=== PATIENT | female | born 1955 | race Caucasian/White ===

== ENCOUNTER 2024-06-09 20:33 | Inpatient (IN) | payer MEDICARE ==
[~2024-06-09] VITALS: Ht 154.9 cm; Wt 104.8 kg
[2024-06-09 21:41] LABS: BASOPHILS # (AUTO) 0.1 K/UL (0.0-0.2); BASOPHILS % (AUTO) 1.3 % (0.0-2.0); EOSINOPHILS % (AUTO) 0.3 % (0.0-7.0); HEMATOCRIT 40.9 % (31.2-41.9); HEMOGLOBIN 13.3 g/dL (10.9-14.3); LYMPHOCYTES # (AUTO) 1.6 K/uL (0.8-4.8); LYMPHOCYTES % (AUTO) 20.2 % (20.5-51.5); MEAN CORPUSCULAR HGB CONC 33 g/dL (32.3-35.6); MEAN CORPUSCULAR VOLUME 92.3 fL (75.5-95.3); MONOCYTES # (AUTO) 0.4 K/uL (0.1-1.30); MONOCYTES % (AUTO) 5.7 % (0.0-11.0); NEUTROPHILS # (AUTO) 5.6 K/uL (1.8-8.9); NEUTROPHILS % (AUTO) 72.5 % (38.5-71.5); PLATELET COUNT (AUTO) 282 K/uL (179-408); RED BLOOD CELL COUNT(AUTO) 4.43 MIL/uL (3.63-4.92); RED CELL DISTRIBUTION WIDTH 16.2 % (12.3-17.7); WHITE BLOOD COUNT (AUTO) 7.7 K/uL (3.8-11.8)
[2024-06-09 21:49] LABS: DIFFERENTIAL COMMENT 1
[2024-06-09 21:59] LABS: CALCIUM 8.9 mg/dL (8.5-10.1); CARBON DIOXIDE 29 mmol/L (21-32); CHLORIDE 107 mmol/L (98-107); CREATININE 0.9 mg/dL (0.6-1.3); GLUCOSE 100 mg/dL (74-106); POTASSIUM 4.3 mmol/L (3.5-5.1); SODIUM SERUM 143 mmol/L (136-145); UREA NITROGEN, BLOOD 10 mg/dL (7-18)
[2024-06-09 22:02] LABS: ETHANOL < 3 MG/DL (0-10)
[2024-06-09 22:04] LABS: ALANINE AMINOTRANSFERASE 13 U/L (14-59); ALBUMIN 3.5 g/dL (3.4-5.0); ALKALINE PHOSPHATASE 114 U/L (50-136); ASPARTATE AMINOTRANSFERASE 10 U/L (15-37); BILIRUBIN,DIRECT 0.2 mg/dL (0.0-0.2); BILIRUBIN,TOTAL 0.6 mg/dL (0.2-1.0); TOTAL PROTEIN, SERUM 6.9 g/dL (6.4-8.2)
[2024-06-09 22:06] LABS: ACETAMINOPHEN < 10.0 ug/mL (10-30)
[2024-06-09 23:59] LABS: *BILIRUBIN,URIN NEGATIVE (NEGATIVE); *BLOOD, URINE NEGATIVE (NEGATIVE); *CLARITY,URINE CLEAR (CLEAR); *COLOR,URINE YELLOW (YELLOW); *KETONES,URINE NEGATIVE (NEGATIVE); *PROTEIN,URINE NEGATIVE (NEGATIVE); LEUKOCYTE ESTERASE ,URINE NEGATIVE (NEGATIVE); NITRITE, URINE NEGATIVE (NEGATIVE); UGLUCOSE NEGATIVE (NEGATIVE)
[2024-06-10 00:11] LABS: *AMPHETAMINE, URINE NEGATIVE (NEGATIVE); *BARBITURATE, URINE NEGATIVE (NEGATIVE); *BENZODIAZEPINE, URINE NEGATIVE (NEGATIVE); *CANNABINOID, URINE NEGATIVE (NEGATIVE); *COCCAINE, URINE NEGATIVE (NEGATIVE); *OPIATE, URINE NEGATIVE (NEGATIVE); *PHENCYCLIDINE SCREEN,URINE NEGATIVE (NEGATIVE); FENTANYL, URINE NEGATIVE (NEGATIVE)
[2024-06-10] MEDS ORDERED: ACETAMINOPHEN 325 MG TABLET ONE (00:47)
[2024-06-10] MEDS: ACETAMINOPHEN 325 MG TABLET PO ONE (00:49)
[2024-06-10] MEDS ORDERED: MAGNESIUM HYDROXIDE 30 ML LIQUID UDC PO PRN (01:00)
[2024-06-10] MEDS ORDERED: CLONAZEPAM 0.5 MG TABLET PO PRN (01:00)
[2024-06-10] MEDS ORDERED: MAG HYDROX/AL HYDROX/SIMETH 30 ML LIQUID UDC PO PRN (01:00)
[2024-06-10 08:00] VITALS: BP 123/58; TEMP 98.3; O2SAT 97
[2024-06-10] MEDS: NICOTINE 21 MG/24HR PATCH TD SCH (08:25)
[2024-06-10] MEDS: ACETAMINOPHEN 325 MG TABLET PO PRN (09:44)
[2024-06-10] MEDS: CLONAZEPAM 0.5 MG TABLET PO PRN (09:44)
[2024-06-10 16:32] VITALS: BP 115/52; TEMP 98.1; O2SAT 97
[2024-06-10 20:37] VITALS: BP 116/48; TEMP 98; O2SAT 92
[2024-06-10] MEDS: TEMAZEPAM 7.5 MG CAPSULE PO PRN (21:31)
[2024-06-11 07:50] LABS: BASOPHILS # (AUTO) 0.1 K/UL (0.0-0.2); BASOPHILS % (AUTO) 1.5 % (0.0-2.0); EOSINOPHILS # (AUTO) 0.1 K/uL (0.0-0.7); EOSINOPHILS % (AUTO) 2.3 % (0.0-7.0); HEMATOCRIT 38.9 % (31.2-41.9); HEMOGLOBIN 12.8 g/dL (10.9-14.3); LYMPHOCYTES # (AUTO) 1.7 K/uL (0.8-4.8); LYMPHOCYTES % (AUTO) 32.7 % (20.5-51.5); MEAN CORPUSCULAR HEMOGLOBIN 30.2 uug (24.7-32.8); MEAN CORPUSCULAR HGB CONC 33 g/dL (32.3-35.6); MEAN CORPUSCULAR VOLUME 91.6 fL (75.5-95.3); MONOCYTES # (AUTO) 0.4 K/uL (0.1-1.30); MONOCYTES % (AUTO) 7.5 % (0.0-11.0); NEUTROPHILS # (AUTO) 2.9 K/uL (1.8-8.9); PLATELET COUNT (AUTO) 263 K/uL (179-408); RED BLOOD CELL COUNT(AUTO) 4.24 MIL/uL (3.63-4.92); RED CELL DISTRIBUTION WIDTH 16.5 % (12.3-17.7); WHITE BLOOD COUNT (AUTO) 5.2 K/uL (3.8-11.8)
[2024-06-11 08:00] LABS: DIFFERENTIAL COMMENT 1
[2024-06-11] MEDS: ESCITALOPRAM OXALATE 10 MG TABLET PO SCH (08:16)
[2024-06-11 08:19] LABS: ALBUMIN 3.1 g/dL (3.4-5.0); BILIRUBIN,TOTAL 0.5 mg/dL (0.2-1.0); CALCIUM 8.4 mg/dL (8.5-10.1); CREATININE 0.8 mg/dL (0.6-1.3); MAGNESIUM 2.2 mg/dL (1.8-2.4); PHOSPHOROUS 3.2 mg/dL (2.5-4.9); POTASSIUM 4.6 mmol/L (3.5-5.1); TOTAL PROTEIN, SERUM 6.1 g/dL (6.4-8.2)
[2024-06-11 08:22] LABS: THYROID STIMULATING HORMONE 1.515 mIU/mL (0.358-3.740)
[2024-06-11 08:26] VITALS: BP 157/76; TEMP 97.9; O2SAT 98
[2024-06-11 16:20] VITALS: BP 146/78; TEMP 98; O2SAT 97
[2024-06-11 20:12] VITALS: BP 153/79; TEMP 98.1; O2SAT 94
[2024-06-12 08:06] VITALS: BP 98/52; TEMP 98.7; O2SAT 97
[2024-06-12 16:34] VITALS: BP 113/68; TEMP 98.3; O2SAT 97
[2024-06-12 21:23] VITALS: BP 145/94; TEMP 98; O2SAT 94
[2024-06-13] MEDS: CLOTRIMAZOLE 1% CREAM 30 GM TUBE TOP SCH (08:23)
[2024-06-13] MEDS: REMEDY ESSENTIAL ZINC PASTE 113 GM TOP SCH (08:23)
[2024-06-13 08:46] VITALS: BP 144/78; TEMP 98; O2SAT 91
[2024-06-13] MEDS: CYANOCOBALAMIN 1,000 MCG TABLET PO SCH (12:29)
[2024-06-13] MEDS: IBUPROFEN 400 MG TABLET PO PRN (12:29)
[2024-06-13 15:30] VITALS: BP 158/74; TEMP 98; O2SAT 93
[2024-06-14 08:02] VITALS: BP 137/74; TEMP 98; O2SAT 96
[2024-06-14 15:31] VITALS: BP 138/77; TEMP 98; O2SAT 93
[2024-06-14 20:04] VITALS: BP 109/75; TEMP 98.2; O2SAT 94
[2024-06-15 08:03] VITALS: BP 127/72; TEMP 98; O2SAT 90
[2024-06-15 15:38] VITALS: BP 114/62; TEMP 98; O2SAT 96
[2024-06-15 20:18] VITALS: BP 128/82; TEMP 98.1; O2SAT 92
[2024-06-16 07:56] VITALS: BP 125/44; TEMP 98.2; O2SAT 92
[2024-06-16 16:07] VITALS: BP 129/65; TEMP 98; O2SAT 96
[2024-06-16 20:00] VITALS: BP 122/77; TEMP 98.1; O2SAT 95
[2024-06-17 08:11] VITALS: BP 111/56; TEMP 98; O2SAT 98
[2024-06-17 16:12] VITALS: BP 147/70; TEMP 98; O2SAT 97
[2024-06-17 20:00] VITALS: BP 141/71; TEMP 98; O2SAT 93
[2024-06-18 08:00] VITALS: BP 122/70; TEMP 98.5; O2SAT 97
[2024-06-18 16:59] VITALS: BP 149/72; TEMP 98.1; O2SAT 97
[2024-06-18 20:23] VITALS: BP 121/65; TEMP 98; O2SAT 92
[2024-06-19 08:04] VITALS: BP 117/55; TEMP 98.1; O2SAT 97
[2024-06-19 16:31] VITALS: BP 125/65; TEMP 98; O2SAT 97
[2024-06-19 20:00] VITALS: BP 140/67; TEMP 97.9; O2SAT 93
[2024-06-20 08:06] VITALS: BP 124/62; TEMP 98; O2SAT 94
[2024-06-20] MEDS: ESCITALOPRAM OXALATE 10 MG TABLET PO ONE (09:11)
[2024-06-20 15:30] VITALS: BP 115/61; TEMP 98; O2SAT 94
[2024-06-20 20:00] VITALS: BP 137/80; TEMP 98; O2SAT 95
[2024-06-21 07:30] VITALS: BP 126/51; TEMP 98; O2SAT 98
[2024-06-21] MEDS: CYANOCOBALAMIN 1000 MCG/ML VIAL IM SCH (08:56)
[2024-06-21] MEDS: ESCITALOPRAM OXALATE 10 MG TABLET PO SCH (08:57)
== END 2024-06-21 15:04 | DRG 881 ==
LOC: ER 20:46 → GPS 22:21
PROVIDERS: ADMIT Psychiatry & Neurology Psychiatry; ATTEND Nurse Practitioner Acute Care
PROC: 0HBRXZZ Excision of Toe Nail, External Approach (ICD-10-PCS; principal; 2024-06-13)
DX: F32.A Depression, unspecified (principal); Z68.42 Body mass index [BMI] 45.0-49.9, adult; E66.01 Morbid (severe) obesity due to excess calories; E53.8 Deficiency of other specified B group vitamins; F17.290 Nicotine dependence, other tobacco product, uncomplicated; F29 Unspecified psychosis not due to a substance or known physiological condition; I10 Essential (primary) hypertension; L60.2 Onychogryphosis; M19.90 Unspecified osteoarthritis, unspecified site; Z86.718 Personal history of other venous thrombosis and embolism; L60.3 Nail dystrophy; Z73.6 Limitation of activities due to disability; F03.90 Unspecified dementia, unspecified severity, without behavioral disturbance, psychotic disturbance, mood disturbance, and anxiety; Z20.822 Contact with and (suspected) exposure to COVID-19; M79.675 Pain in left toe(s); M79.674 Pain in right toe(s)
CPT/HCPCS: 36415; 83735; 84100; 84443; 85025; 85730; A4606; A4663; G0480; J3420